=== PATIENT | female | born 1940 | race Caucasian/White ===

== ENCOUNTER 2021-08-05 15:35 | Emergency (ER) | payer MEDICARE, SELFPAY ==
[2021-08-05 15:52] VITALS: BP 125/68; PULSE 80; RESP 20; TEMP 36.2; O2SAT 99
--- NOTE | 2021-08-05 15:56 | ED.LOWEXIN ---
HPI - Extremity Injury (Lower) General Chief Complaint: Extremity Injury, Lower Stated Complaint: Left Knee Pain Time Seen by Provider: 08/05/21 15:56 Source: patient Mode of arrival: ambulatory Limitations: no limitations History of Present Illness HPI Narrative: 81-year-old female presents to the [facility] with left knee pain for the last 3 weeks. Patient states that she fell was diagnosed with a fractured rib. States that she has had increased pain, swelling, redness, warmth to the left knee and left lower leg. Denies being on blood thinners. Has been applying ice and taking Tylenol. Has a history of thyroid disease, hypertension and high cholesterol. Related Data Home Medications Medication Instructions Recorded Confirmed hydrochlorothiazide 08/05/21 levothyroxine 08/05/21 lisinopril 08/05/21 metoprolol succinate PO 08/05/21 rosuvastatin mg 08/05/21 Allergies Allergy/AdvReac Type Severity Reaction Status Date / Time ibuprofen Allergy Severe AIRWAY Verified 08/05/21 16:09 CLOSES codeine AdvReac Other Verified 08/05/21 16:09 Review of Systems Review of Systems: All systems reviewed & are unremarkable except as noted in HPI and below Constitutional: Constitutional: Reports no additional constitutional complaints, Denies chills and Denies fever(s) Eyes: Eyes: Reports no additional eye complaints ENT: Reports system reviewed and no additional complaints, except as documented Cardiovascular: Cardiovascular: Reports no additional cardiovascular complaints Respiratory: Respiratory: Reports no additional respiratory complaints Musculoskeletal: Musculoskeletal: Reports as per HPI, Reports arthralgias and Reports joint swelling (Left knee) Comments: Left knee swelling, bruising, redness, increased warmth Integumentary/Breasts: Skin/Breast: Reports as per HPI Neurologic: Reports system reviewed and no additional complaints, except as documented Psychiatric: Psychiatric: Reports no additional psychiatric complaints Allergic/Immunologic: Allergic/Immunologic: Reports no additional allergic/immunologic complaints [facility] Social History Social History (Updated 08/05/21 @ 16:06 by Alina Kelley) Living arrangements: with family Occupation/Education: retired Gender identity (if verbalized by the patient): Female Comments At the time of my signature, I reviewed and agree with the nursing past medical, surgical, social, and family history. There is no relevant family history pertinent to the patient complaint. Exam Const: General: healthy appearing, no acute distress and alert Nutritional Appearance: well nourished Orientation/consciousness: patient oriented x3 Limitations: no limitations HENMT: Head: normal to inspection Eyes: Pupils: Equal, round and reactive pupils present Neck: Neck: normal visual inspection, no lymphadenopathy and no meningeal signs Chest: Chest palpation & inspection: normal inspection of the chest Resp: Effort & Inspection: normal respiratory effort Auscultation: clear to auscultation bilaterally Cardio: Rate: regular rate Rhythm: regular rhythm Back/Spine/Pelvis: Back: no CVA tenderness Skin: Wounds: no wounds Other: Significant amount of bruising noted starting just below the knee all the way down to the tips of her toes Neuro: General: patient oriented x3, moves all extremities, no meningeal signs and no focal motor deficits Speech: normal speech Gait exam (Neuro): gait abnormal Extrem: General: normal to inspection Left lower extremity: knee Details: abnormal to inspection Details: erythematous, asymmetric and with a suprapatellar bulge, tenderness (Generalized), swelling (Significant generalized knee extending all the way to the ankle), abnormal ROM and ecchymosis (Knee extending into the ankle and foot) and lower leg Details: erythema, non-pitting edema Details: 2+ and ecchymosis; no deformity Knee images: 1. Very large effusion with increased
== END 2021-08-05 16:15 | disposition short-term general hospital (02) ==
PROVIDERS: Emergency Provider Nurse Practitioner; PCP Internal Medicine
DX: M79.89 Other specified soft tissue disorders (principal); M25.462 Effusion, left knee; E78.00 Pure hypercholesterolemia, unspecified; I10 Essential (primary) hypertension; M19.90 Unspecified osteoarthritis, unspecified site; E03.9 Hypothyroidism, unspecified
CPT/HCPCS: 99212; G0463